=== PATIENT | female | born 1970 | race Caucasian/White ===

== ENCOUNTER 2023-01-26 17:03 | Outpatient (OUT) | payer BC, SELFPAY ==
--- NOTE | 2023-01-26 17:14 | US_ITS ---
The [address] [address] Patient Name: PATEL CUNHA MRN: [id number] date: 1970 Sex: F Assigned Patient Location: Current Patient Location: Accession/Order Number: [id number] Exam Date: 01/26/2023 17:15 Report Date: 01/27/2023 06:33 At the request of: EN BANKS Procedure: US pelvis w/ transvaginal EXAMINATION: US pelvis w/ transvaginal HISTORY: RIGHT LOWER QUADRANT PAIN R10.31 COMPARISON: No relevant comparison available. TECHNIQUE: Transabdominal and/or transvaginal sonographic examination was performed as indicated by examination type. FINDINGS: UTERUS: Hysterectomy. RIGHT OVARY: Not seen. LEFT OVARY: Normal size and appearance. Duplex Doppler demonstrates normal waveform and flow; resistive index 0.6. Ovary size: 1.3 x 1.4 x 1.4 cm CUL-DE-SAC: Unremarkable. No significant free fluid. BLADDER: Unremarkable. OTHER: None. US/US pelvis w/ transvaginal IMPRESSION: 1. Right ovary was not seen, and limited evaluation of the right lower quadrant due to shadowing artifact from large amount of bowel within right lower quadrant. Electronically authenticated by: BERNIE WARNER Date: 01/27/2023 06:33
== END 2023-01-26 17:04 | disposition home or self-care (01) ==
PROVIDERS: PCP Family Medicine; Visit Provider Nurse Practitioner Family
DX: R10.31 Right lower quadrant pain (principal)
CPT/HCPCS: 76830; 76856

== ENCOUNTER 2023-03-26 09:28 | Outpatient (OUT) | payer BC, SELFPAY ==
--- NOTE | 2023-03-26 09:54 | XR_ITS ---
The [address] [address] Patient Name: PATEL CUNHA MRN: [id number] date: 1970 Sex: F Assigned Patient Location: LAB Current Patient Location: LAB Accession/Order Number: [id number] Exam Date: 03/26/2023 10:00 Report Date: 03/26/2023 10:24 At the request of: DORI CONRAD Procedure: XR knee RT 3V EXAM: Right knee HISTORY: . Right Knee Pain M25.561 . COMPARISON: None. TECHNIQUE: 3 views FINDINGS: Right knee arthroplasty is noted. No loosening or fracture is noted. There is slight fullness in the suprapatellar region suggesting a small suprapatellar effusion. XR/XR knee RT 3V IMPRESSION: 1 right knee arthroplasty noted with no acute bony abnormality. 2. Questionable small suprapatellar effusion. Electronically authenticated by: MARIELA BROWN Date: 03/26/2023 10:24
[2023-03-26 10:41] LABS: Basophils Absolute Auto 0.1 10^3/uL (0.0-0.1); Basophils Percent Auto 0.7 % (0.2-2.0); Eosinophils Absolute Auto 0.2 10^3/uL (0.0-0.7); Hematocrit 40.2 % (36.0-48.0); Hemoglobin 13.5 g/dL (12.0-16.0); Immature Granulocytes Abs Auto 0.08 10^3/uL (0.00-0.03); Immature Granulocytes Pct Auto 1.1 % (0.0-0.5); Lymphocytes Absolute Auto 2.2 10^3/uL (1.2-3.8); Lymphocytes Percent Auto 30.3 % (20.5-60.0); Mean Corpuscular HGB Conc 33.6 g/dL (29.9-35.2); Mean Corpuscular Hemoglobin 28.4 pg (26.7-34.0); Mean Corpuscular Volume 84.5 fL (81.0-99.0); Mean Platelet Volume 10.2 fL (9.5-13.5); Monocytes Absolute Auto 0.6 10^3/uL (0.3-0.8); Monocytes Percent Auto 8.6 % (1.7-12.0); Neutrophils Absolute Auto 4.1 10^3/uL (1.4-6.5); Neutrophils Percent Auto 56.3 % (43.0-75.0); Platelet Count 279 10^3/uL (150-450); Red Blood Count 4.76 10^6/uL (4.20-5.40); Red Cell Distribution Width 12.8 % (11.0-15.0); White Blood Count 7.4 10^3/uL (4.0-11.0)
[2023-03-26 11:01] LABS: C Reactive Protein <0.2 mg/dL (<=1.0)
[2023-03-26 11:26] LABS: Erythrocyte Sedimentation Rate 25 mm/hr (<=30)
== END 2023-03-26 09:29 | disposition home or self-care (01) ==
LOC: LAB 09:31
PROVIDERS: PCP Family Medicine; Visit Provider Family Medicine
DX: M25.561 Pain in right knee (principal)
CPT/HCPCS: 36415; 73562; 85025; 85652; 86140

== ENCOUNTER 2023-04-01 13:23 | Day surgery (SDC) | payer BC, SELFPAY ==
--- NOTE | 2023-04-01 13:31 | FL_ITS ---
The [address] [address] Patient Name: PATEL CUNHA MRN: [id number] date: 1970 Sex: F Assigned Patient Location: [place] Current Patient Location: Accession/Order Number: [id number] Exam Date: 04/01/2023 13:40 Report Date: 04/01/2023 15:34 At the request of: DORI CONRAD Procedure: FL guided needle placement EXAMINATION: FL knee inj RT, FL guided needle placement HISTORY: Abnormal Knee Xray, Right knee effusion COMPARISON: No relevant comparison available. TECHNIQUE: The right knee joint space was accessed for removal of fluid. FINDINGS: JOINT: Right knee. NEEDLE: 20 gauge, 3.5 spinal needle. MEDICATION: 2 mL buffered 1% lidocaine for subcutaneous anesthesia TECHNIQUE: Anterior approach over the lateral femoral condyle was used to gain access to the knee joint capsule. 5 mL of minimally opaque but slightly reddish tinted fluid was removed. Several drops of fluid was placed on Q TIPS and placed in container for culture. CLINICAL: No postprocedure complications. COMPLICATIONS: None. OTHER: Negative. FL/FL guided needle placement IMPRESSION: 1. Successful removal of 5 mL of fluid from right knee joint to relieve pressure and for culture. 2. Pathology results are pending. Electronically authenticated by: BERNIE WARNER Date: 04/01/2023 15:34
--- NOTE | 2023-04-01 13:31 | FL_ITS ---
The [address] [address] Patient Name: PATEL CUHNA MRN: [id number] date: 1970 Sex: F Assigned Patient Location: [place] Current Patient Location: Accession/Order Number: [id number] Exam Date: 04/01/2023 13:40 Report Date: 04/01/2023 15:34 At the request of: DORI CONRAD Procedure: FL knee inj RT EXAMINATION: FL knee inj RT, FL guided needle placement HISTORY: Abnormal Knee Xray, Right knee effusion COMPARISON: No relevant comparison available. TECHNIQUE: The right knee joint space was accessed for removal of fluid. FINDINGS: JOINT: Right knee. NEEDLE: 20 gauge, 3.5 spinal needle. MEDICATION: 2 mL buffered 1% lidocaine for subcutaneous anesthesia TECHNIQUE: Anterior approach over the lateral femoral condyle was used to gain access to the knee joint capsule. 5 mL of minimally opaque but slightly reddish tinted fluid was removed. Several drops of fluid was placed on Q TIPS and placed in container for culture. CLINICAL: No postprocedure complications. COMPLICATIONS: None. OTHER: Negative. FL/FL knee inj RT IMPRESSION: 1. Successful removal of 5 mL of fluid from right knee joint to relieve pressure and for culture. 2. Pathology results are pending. Electronically authenticated by: BERNIE WARNER Date: 04/01/2023 15:34
[2023-04-01] MEDS: LIDOCAINE HCL 10 ML, SODIUM BICARBONATE 1 MEQ INJ (14:15)
== END 2023-04-01 14:30 | disposition home or self-care (01) ==
LOC: FL 13:23
PROVIDERS: Radiology Diagnostic Radiology; PCP Family Medicine; Visit Provider Family Medicine
DX: M25.461 Effusion, right knee (principal)
CPT/HCPCS: 20610; 77002; 87070; Q9967

== ENCOUNTER 2023-04-06 12:45 | Outpatient (OUT) | payer BC, SELFPAY | END 2023-04-06 12:46 | disposition home or self-care (01) | LOC: PST 12:45 | PROVIDERS: PCP Family Medicine; Visit Provider Surgery | DX: Z01.818 Encounter for other preprocedural examination (principal); Z86.010 Personal history of colon polyps ==

== ENCOUNTER 2023-04-14 06:27 | Day surgery (SDC) | payer BC, SELFPAY ==
--- NOTE | 2023-04-14 | OP_ITS ---
OPERATION DATE: ??04/14/2023 PREOPERATIVE DIAGNOSIS:? Personal history of colon polyps. POSTOPERATIVE DIAGNOSIS:? Ascending colon polyps x2 and sigmoid polyp x1. PROCEDURE:? Colonoscopy to cecum with cold snare polypectomy x2 and hot snare polypectomy x1. SURGEON:? Tyler Arnold M.D. ] ANESTHESIA:? Monitored anesthesia care. ESTIMATED BLOOD LOSS:? Less than 1 mL. INDICATIONS AND CONSENT:? 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 She now presents for surveillance colonoscopy. ?Indications, risks, benefits, alternatives of proceeding with colonoscopy were explained extensively to the patient, including the risks of bleeding, colon perforation or anesthetic complications.? All of her questions were answered.? Informed consent was obtained. PROCEDURE:? Patient brought to the operating room, placed in the left lateral decubitus position.? Monitored anesthesia care was provided.? Rectal exam was performed which showed no masses or blood.? The scope was inserted into the anal canal.? Under direct visualization was advanced to the cecum where cecal markings were clearly identified.? There was noted to be a good prep.? Upon withdrawal of the scope, mucosal surfaces were carefully examined.? Within the ascending colon, there was noted to be a 3 mm sessile polyp that was removed with cold biopsy forceps with good hemostasis.? Just distal to that, also in the ascending, was noted to be an elongated polyp that was cylindrical.? This was removed with cold snare with good hemostasis.? Within the sigmoid, there was noted to be previous tattooing for the tubulovillous adenoma.? There were no recurrent polyps at this site, but just distal to the area of tattooing was a recurrent 5 mm erythematous, sessile polyp that was removed with hot snare with good hemostasis.? There was no significant diverticulosis.? The scope was retroflexed in the anal canal.? There was no significant hemorrhoidal disease.? Scope was then withdrawn.? Patient tolerated procedure well, was sent to recovery room in good condition. Follow up colonoscopy will likely be in three years, but will depend on the pathology results. CC:? Yesika Urbano
[2023-04-14 06:42] VITALS: BP 157/9; PULSE 103; RESP 20; TEMP 36.3; O2SAT 95; BMI 39.4
[2023-04-14] MEDS: LACTATED RINGER'S SOLUTION 1,000 ML 50 ML IV (06:55)
[2023-04-14 07:54] VITALS: BP 143/81; PULSE 88; RESP 20; O2SAT 96
[2023-04-14 08:05] VITALS: BP 144/89; PULSE 87; RESP 16; O2SAT 98
[2023-04-14 08:18] VITALS: BP 155/84; PULSE 87; RESP 16; O2SAT 99
== END 2023-04-14 08:20 | disposition home or self-care (01) ==
PROVIDERS: PCP Family Medicine; Visit Provider Surgery
PROC: (CPT 45380; principal; 2023-04-14 07:30)
DX: D12.5 Benign neoplasm of sigmoid colon (principal); Z86.010 Personal history of colon polyps; K21.9 Gastro-esophageal reflux disease without esophagitis; I10 Essential (primary) hypertension; G47.33 Obstructive sleep apnea (adult) (pediatric); E66.01 Morbid (severe) obesity due to excess calories; F41.8 Other specified anxiety disorders; Z68.39 Body mass index [BMI] 39.0-39.9, adult; Z90.710 Acquired absence of both cervix and uterus
CPT/HCPCS: 45380; 45385; 88305; J2704

== ENCOUNTER 2024-09-29 08:16 | Outpatient (OUT) | payer BC, SELFPAY ==
--- NOTE | 2024-09-29 | XR_ITS ---
The [address] [address] Patient Name: PATEL CUNHA MRN: [id number] date: 1970 Sex: F Assigned Patient Location: [place] Current Patient Location: [place] Accession/Order Number: [id number] Exam Date: 09/29/2024 09:07 Report Date: 09/29/2024 09:16 At the request of: DORI CONRAD MD Procedure: XR hip LT 2V w/ pelvis CLINICAL DATA: Bilateral knee pain and pain at the left hip following fall. BILATERAL KNEES - 3 views each COMPARISON: Right knee 03/26/2023 and bilateral 03/06/2022 AP, lateral and internal oblique views were obtained on both sides. There our bilateral knee replacements. The hardware appears intact and unchanged from the comparison. There is no acute fracture or dislocation. There is a trace amount joint fluid. No focal soft tissue swelling seen. XR/XR hip LT 2V w/ pelvis IMPRESSION: SATISFACTORY APPEARANCE OF KNEE REPLACEMENTS. NO ACUTE BONY FINDINGS. LEFT HIP WITH AP PELVIS - 3 views COMPARISON: None available AP view of the pelvis as well as AP and frog-lateral views of the left hip were obtained. No fracture or dislocation is identified. The hip joint spaces are maintained. There is no significant hypertrophy. There are enthesophytes at the iliac crests and minimal at the greater trochanters. There is minor sclerosis at the SI joints and pubic symphysis. There is also minimal degenerative change at the lower imaged lumbar spine. No soft tissue abnormalities are present. Tubal ligation clips are noted. IMPRESSION: NO ACUTE BONY INJURY. Impression dictated by: Cassie Shah M.D.09/29/2024 9:16 AM Dictation Location: [place] [address] Electronically authenticated by: [id number] Y Date: 09/29/2024 09:16
--- NOTE | 2024-09-29 | NM_ITS ---
Patient Name: PATEL CUNHA MR#: [id number] : 1970 Exam Date: 09/29/2024 Ordering Doctor: DR Filemon Bunch . RADIOLOGY REPORT PROCEDURE: NM AKI PERF SPECT REST STR COMPARISON: None. INDICATIONS: CHEST PAIN TECHNIQUE: Exam Description: Stress/Rest one day protocol gated SPECT Rest Imagin.8 mCi Tc-99m Cardiolite IV on 09/29/2024 Stress Imaging 30.6 mCi Tc-99m Cardiolite IV on 09/29/2024 Exercise Protocol: Jose Heart Rate (bpm): Rest: 78 Max: 146 PMHR: 88 Blood Pressure: Rest: 156/81 Max: 192/88 Exercise Time: Minutes: 7 Seconds: 32 Stage Reached: Stage: 3 Mets 10.10 Symptoms: Rest and peak stress ECG findings were pending and the exercise portion of the study was pending per attending physician [facility] . For more details, please see separate cardiac stress test report. FINDINGS: QUALITY OF STUDY: Good PERFUSION DEFECT: None WALL MOTION: Normal wall motion LV SIZE: 71 mL. TID / TCD: 0.8 LVEF: Calculated EF 72%. SUMMARY: Myocardial perfusion imaging study is normal CONCLUSION: 1. Myocardial perfusion is normal with soft tissue attenuation 2. Global left ventricular systolic function is normal 3. No evidence of transient ischemic dilatation Dictated by: Diana Forrest M.D. on 10/03/2024 at 12:37 Approved by: Diana Forrest M.D. on 10/03/2024 at 12:41
--- NOTE | 2024-09-29 | XR_ITS ---
The [address] [address] Patient Name: PATEL CUNHA MRN: [id number] date: 1970 Sex: F Assigned Patient Location: [place] Current Patient Location: [place] Accession/Order Number: [id number] Exam Date: 09/29/2024 09:07 Report Date: 09/29/2024 09:16 At the request of: DORI CONRAD MD Procedure: XR hip LT 2V w/ pelvis CLINICAL DATA: Bilateral knee pain and pain at the left hip following fall. BILATERAL KNEES - 3 views each COMPARISON: Right knee 03/26/2023 and bilateral 03/06/2022 AP, lateral and internal oblique views were obtained on both sides. There our bilateral knee replacements. The hardware appears intact and unchanged from the comparison. There is no acute fracture or dislocation. There is a trace amount joint fluid. No focal soft tissue swelling seen. XR/XR knee ANA CRISTINA 3V IMPRESSION: SATISFACTORY APPEARANCE OF KNEE REPLACEMENTS. NO ACUTE BONY FINDINGS. LEFT HIP WITH AP PELVIS - 3 views COMPARISON: None available AP view of the pelvis as well as AP and frog-lateral views of the left hip were obtained. No fracture or dislocation is identified. The hip joint spaces are maintained. There is no significant hypertrophy. There are enthesophytes at the iliac crests and minimal at the greater trochanters. There is minor sclerosis at the SI joints and pubic symphysis. There is also minimal degenerative change at the lower imaged lumbar spine. No soft tissue abnormalities are present. Tubal ligation clips are noted. IMPRESSION: NO ACUTE BONY INJURY. Impression dictated by: Cassie Shah M.D.09/29/2024 9:16 AM Dictation Location: [place] [address] Electronically authenticated by: [id number] Y Date: 09/29/2024 09:16
--- NOTE | 2024-10-02 16:55 | P.STRESS_ITS ---
Stress Test Stress Test Allergies Allergy/AdvReac Type Severity Reaction Status Date / Time NSAIDS (Non-Steroidal Allergy rash Verified 04/01/23 14:43 Anti-Inflamma Sulfa (Sulfonamide Allergy rash Verified 04/01/23 14:43 Antibiotics) Requesting physician: Filemon Bunch Procedure: This was a treadmill exercise stress test with myocardial perfusion imaging performed at the [facility] on 09/29/2024. The patient was attached to electrocardiographic monitoring. Intravenous line was secured. The patient exercised on the treadmill according to the Jose protocol for 7 minutes and 32 seconds and reached stage 3 of the Jose protocol and achieved 10.10 minutes. Cardiolite was injected at peak exercise. The stress test was stopped due to target heart rate being achieved. Resting heart rate was 78 bpm and peak heart rate was 146 bpm representing 88% of max predicted heart rate. Resting blood pressure was 156/81 and peak blood pressure was 192/88. General Information: Reason for Stress Test: dyspnea Cardiac History and Risk Factors: hypertension, diabetes. Resting 12 - Lead Electrocardiogram: Normal sinus rhythm, normal ECG. Heart rate 78 bpm. Stress Test: Protocol: Standard Jose protocol. Exercise Capacity: Good. Blood Pressure Response: Resting hypertension, exaggerated blood pressure response. Rhythm: Sinus rhythm with no arrhythmias. ST - Response: [address] segment depression in V4, V5 and V6. Patient Response: No chest pain, shortness of breath noted. Interpretation: 1. Positive treadmill exercise stress test for exercise-induced ST segment depressions. 2. Sarmiento treadmill score of +2.5 is associated with intermediate risk for long- term cardiac events. 3. Myocardial perfusion imaging will reported separately.
== END 2024-09-29 08:17 | disposition home or self-care (01) ==
LOC: NM 08:16
PROVIDERS: PCP Family Medicine; Visit Provider Family Medicine
DX: R07.9 Chest pain, unspecified (principal); M79.606 Pain in leg, unspecified; Z96.653 Presence of artificial knee joint, bilateral
CPT/HCPCS: 73502; 73562; 78452; 93017; A9500

== ENCOUNTER 2024-10-24 09:00 | Outpatient (OUT) | payer BC, SELFPAY ==
--- NOTE | 2024-10-24 09:00 | CA_ITS ---
Patient Name: PATEL CUNHA MR#: [id number] : 1970 Exam Date: 10/24/2024 Ordering Doctor: DR ESPERANZA GARCIA M.D. ECHOCARDIOGRAM REPORT PROCEDURE: CA ECHO DOPPLER COMPLETE INDICATIONS: Shortness of breath, hypertension, diabetes COMPARISON: None. DESCRIPTION: COMPLETE ECHOCARDIOGRAM Real-time transthoracic echocardiography with 2D, M-mode, spectral and color flow Doppler performed. QUALITY: Technical quality was good. LEFT VENTRICLE: Normal chamber size. Borderline left ventricular hypertrophy. Normal systolic function. LV EF: Normal left ventricular ejection fraction, (55-60%). DIASTOLIC: Normal diastolic function. ATRIAL SEPTUM: Visually appears intact. LEFT ATRIUM: Normal chamber size. RIGHT ATRIUM: Normal chamber size. RIGHT VENTRICLE: Normal chamber size. Normal right ventricular systolic function. TRICUSPID VALVE: Normal mobility and thickness. No stenosis with trivial regurgitation. No evidence of pulmonary hypertension. RVSP 34 mmHg MITRAL VALVE: Normal mobility and thickness. No evidence of mitral valve stenosis. There is no mitral annular calcification. Trivial mitral regurgitation. AORTIC VALVE: Normal trileaflet appearance. No visible sclerosis. Normal leaflet mobility. No evidence of aortic valve stenosis. No aortic regurgitation. AORTIC ROOT: Normal diameter and appearance, measuring 2.7 cm. PULMONIC VALVE: Not well visualized. No stenosis. No regurgitation. PERICARDIUM: No evidence of pericardial effusion. IVC: Collapses with inspirations. IVC is normal in size. PLEURA: CONCLUSION: 1. Normal left ventricular size and systolic function. Estimated LVEF is 55 to 60%. 2. Normal right ventricular size and systolic function. 3. Normal diastolic function. 4. No significant valvular dysfunction. 5. Normal right-sided pressures. Adult Echocardiography Procedure Report Left Ventricle LVEDD (3.7 - 5.6 cm): 3.84 cm LVESD (2.2 - 4.0 cm): 2.94 cm LVIVS thickness (0.6 - 1.2 cm): 1.00 cm LVPW thickness (0.5 - 1.0 cm): 1.14 cm e': 0.11 m/s E - e': 9.48 LVOT Max Gradient: 3.58 mm[Hg] LVOT Area (cm2): 0.95 m/s Peak Velocity (LVOT): 0.95 m/s Mean Velocity (LVOT): 0.61 m/s LVOT Diameter 2.03 cm Left Atrium LA Volume Index (2D A2C): 23.14 ml/m2 Left Atrium Systolic Dimension: 4.22 cm Mitral Valve MV E to A Ratio: 1.44 Mitral Valve A-Wave Peak Velocity: 0.71 m/s Mitral Valve E-Wave Peak Velocity: 1.02 m/s Right Ventricle Aorta AO Root Diam: 2.67 cm Aortic Valve AoV Area (Peak Madhu): 2.40 cm2, 2.40 cm2 AoV Area (VTI): 2.19 cm2, 2.19 cm2 Peak Velocity(Antegrade Flow): 1.27 m/s Peak Gradient(Antegrade Flow): 6.46 mm[Hg] Mean Velocity(Antegrade Flow): 0.87 m/s Mean Gradient(Antegrade Flow): 3.48 mm[Hg] Velocity Time Integral: 28.15 cm Tricuspid Valve Peak Velocity (Regurgitant Flow): 2.78 m/s Pulmonic Valve Mean Gradient: 1.84 mm[Hg] Mean Velocity: 0.62 m/s Peak Velocity: 1.00 m/s, 0.94 m/s Peak Gradient: 3.53 mm[Hg], 3.98 mm[Hg] Right Atrium Right Atrium Systolic Pressure: 46.66 ml, 46.66 ml Dictated by: Kendall Cheema M.D. on 10/24/2024 at 19:37 Approved by: Kendall Cheema M.D. on 10/24/2024 at 19:40
--- OUTSIDE RECORDS SUMMARY | 2024-10-24 09:10 | XMS_ITS | CCD ---
Author Organization [facility] Care Team Providers Care Processor Grain Name Role Phone ALEXAY ., DR MEADOWS Admitting Unavailable HOY ., DR MEADOWS Attending Unavailable HOY ., DR MEADOWS Primary Care Unavailable HOY ., DR MEADOWS Admitting Unavailable HOY ., DR MEADOWS Attending Unavailable HOY ., DR MEADOWS Primary Care Unavailable HOY ., DR MEADOWS Primary Care Unavailable REINECK, DR CASSIDY Bowers Admitting Unavailabl e REINECK, DR CASSIDY Bowers Attending Unavailabl e REINECK, DR CASSIDY Bowers Consulting Unavailabl e ROBELTECHIDI OMID Consulting Unavailable HOY ., DR MEADOWS Admitting Unavailable HOY ., DR MEADOWS Attending Unavailable HOY ., DR MEADOWS Primary Care Unavailable HOY ., DR MEADOWS Admitting Unavailable HOY ., DR MEDAOWS Attending Unavailable HOY ., DR MEADOWS Primary Care Unavailable HOY ., DR MEADOWS Consulting Unavailable MARIELA DELCID Consulting Unavailable HOY ., DR MEADOWS Admitting Unavailable HOY ., DR MEADOWS Attending Unavailable HOY ., DR MEADOWS Primary Care Unavailable HOY ., DR MEADOWS Consulting Unavailable REDMOND, DR MARIELA Pinzon Consulting Unavailable HOY ., DR MEADOWS Admitting Unavailable HOY ., DR MEADOWS Attending Unavailable HOY ., DR MEADOWS Primary Care Unavailable HOY ., DR MEADOWS Consulting Unavailable Kulwinder Nickerson Consulting Unavailable Dori Bunch Primary Care Physician [phone] Tyler ELLIS Attending Unavailable Tyler ELLIS Attending Unavailable EN BANKS Referring Unavailable Tyler ELLIS Attending Unavailable ANDRE HAWTHORNE Referring Unavailable DORI BUNCH Primary Care Unavailable DIANA FORREST Attending Unavailable Allergies Allergy Classification Reported Allergen(s) Allergy Type Date of Onset Reaction(s) Facility (2 sources) NSAIDs; Translations: [NSAIDS (NON-STEROIDAL ANTI-INFLAMMATOR Y DRUG)] Drug allergy (disorder) 6 [facility] (1 source) Sulfonamides (Antibiotic) Drug allergy (disorder) 6 [facility] (2 sources) Non-steroidal anti-inflammator y agent; Translations: [NSAIDs] Drug allergy Hives [facility] (2 sources) Sulfamethoxazole ; Translations: [sulfamethoxazol e] Drug Allergy Anaphylaxis (disorder) [facility] (1 source) Sulfonamides (Antibiotic); Translations: [SULFA (SULFONAMIDE ANTIBIOTICS)] Propensity to adverse reactions to drug (disorder) 6 [facility] Repository Medications Current Medications Medication Drug Class(es) Dates Sig (Normalized) Sig (Original) lisinopril 20 mg oral tablet (1 source) Angiotensin Converting Enzyme Inhibitor Start: 11-20-2020 take 1 tablet by mouth once daily lisinopril 20 mg Tab 20 mg = 1 tab(s), Oral, Daily, # 90 tab(s), Refills(s) 0 Start Date: 11/20/20 Status: Ordered sertraline 50 mg oral tablet (1 source) Serotonin Reuptake Inhibitor Start: 03-08-2023 take 1 tablet by mouth once daily Zoloft 50 mg Tab 50 mg = 1 tab(s), Oral, Daily, Refills(s) 0 Start Date: 03/08/23 Status: Ordered Problems Active Problems Problem Classification Problem Date Documented Date Episodic/Chronic Abdominal pain (1 source) Right lower quadrant pain 03-08-2023 Episodic Allergic reactions (1 source) Eczema 03-08-2023 Episodic Anxiety disorders (1 source) Mixed anxiety and depressive disorder 03-08-2023 Chronic Diabetes mellitus without complication (2 sources) Type 2 diabetes mellitus without complications; Translations: [Type 2 diabetes mellitus without complications] Onset: 10-09-2024 Chronic Esophageal disorders (1 source) Gastroesophageal reflux disease 03-08-2023 Chronic Essential hypertension (1 source) Hypertensive disorder 07-24-2013 Chronic Joint disorders and dislocations; trauma-related (1 source) Tear of medial meniscus of knee 09-29-2013 Episodic Comment on above: LEFT Nonspecific chest pain (2 sources) Other chest pain; Translations: [Other chest pain] Onset: 10-09-2024 Episodic Osteoarthritis (2 sources) Unilateral primary osteoarthritis, right knee; Translations: [Osteoarthritis of knee] Onset: 03-10-2022 07-24-2013 Chronic Comment on above: LEFT Other aftercare (2 sources) Aftercare following joint replacement surgery; Translations: [Aftercare following joint replacement surgery] Onset: 05-17-2023 Chronic Other and unspecified benign neoplasm (2 sources) History of polyp of colon; Translations: [Personal history of colonic polyps] Onset: 03-12-2023 Episodic Other and unspecified benign neoplasm (2 sources) Adenomatous polyp of colon 12-12-2020 Episodic Other connective tissue disease (6 sources) Presence of right artificial knee joint; Translations: [PRESENCE RT ARTIFICIAL KNEE JOINT] Onset: 07-19-2022 Chronic Other connective tissue disease (1 source) Presence of left artificial knee joint; Translations: [PRESENCE LEFT ARTIFICIAL KNEE JOINT] Onset: 03-10-2022 Chronic Other female genital disorders (1 source) History of gynecological disorder 03-08-2023 Episodic Other non-traumatic joint disorders (2 sources) Effusion, right knee; Translations: [Effusion, right knee] Onset: 05-17-2023 Episodic Other nutritional; endocrine; and metabolic disorders (1 source) Body mass index 30+ - obesity 11-22-2020 Chronic Other nutritional; endocrine; and metabolic disorders (1 source) Morbid obesity 03-12-2023 Chronic Other screening for suspected conditions (not mental disorders or infectious disease) (2 sources) Abnormal result of other cardiovascular function study; Translations: [Abnormal result of other cardiovascular function study] Onset: 10-09-2024 Episodic Residual codes; unclassified (1 source) Obstructive sleep apnea syndrome 03-08-2023 Chronic Unclassified (1 source) Patient encounter status 11-22-2020 Past or Other Problems Problem Classification Problem Date Documented Da te Episodic/Chronic Other non-traumatic joint disorders (5 sources) Pain in right knee; Translations: [PAIN IN RIGHT KNEE] Onset: 02-26-2022 Episodic Other non-traumatic joint disorders (5 sources) Pain in left knee; Translations: [PAIN IN LEFT KNEE] Onset: 02-24-2022 Episodic Other non-traumatic joint disorders (1 source) Effusion, left knee; Translations: [EFFUSION LEFT KNEE] Onset: 02-26-2022 Episodic Results Test Name Value Interpretation Reference Range Facility Letter (Out)on 10-13-2024 Letter (Out) [id number] Patel Cunha 1970 F Date Provider Department Center 10/13/2024 None-None [facility] C Family History Problem Relation Age of Onset Stroke Father Coronary artery disease Father Diabetes Father Other Father Hyperlipidemia Brother Coronary artery disease Brother Family Status - Relation Status Age at Father Brother Normal [facility] Letter (Out)on 10-11-2024 Letter (Out) [id number] Patel Cunha 1970 F Date Provider Department Center 10/11/2024 None-None [facility] C Family History Problem Relation Age of Onset Stroke Father Coronary artery disease Father Diabetes Father Other Father Hyperlipidemia Brother Coronary artery disease Brother Family Status - Relation Status Age at Father Brother Normal [facility] Office Visiton 10-09-2024 Follow-up visit [id number] Patel Cunha 1970 Provider Department Center 10/09/2024 271-DIANA FORREST [facility] Family History Problem Relation Age of Onset Stroke Father Coronary artery disease Father Diabetes Father Other Father Hyperlipidemia Brother Coronary artery disease Brother Family Status - Relation Status Age at Father Brother Level of Service:37285 [place] OFFICE/OUTPATIENT [facility] 60 MINUTES Normal [facility] Orders Onlyon 10-09-2024 Orders Only [id number] Patel Cunha 1970 Provider Department Center 10/09/2024 [facility] JON [facility] Family History Problem Relation Age of Onset Stroke Father Coronary artery disease Father Diabetes Father Other Father Hyperlipidemia Brother Coronary artery disease Brother Family Status - Relation Status Age at Father Brother Normal [facility] Cult,Fluidon 05-23-2023 Cult,Fluid Specimen Description .KNEE RIGHT .ASPIRATE Direct Exam MANY NEUTROPHILS NO ORGANISMS SEEN Gram stain made from cytocentrifuged specimen. Organisms and cells will be concentrated. Culture NO GROWTH 6 DAYS Report Status FINAL 05/23/2023 Abnormal [facility] Comment on above: Performed By: #### F U #### [facility] [employer] [address] [place] [address] Insurance Analyst: Abdullahi Forman MD Crystals, Fluidson 3 Crystals,Fluid Negative Normal NEG [facility] in Hospital Comment on above: Result Comment: NO C RYSTALS SEEN Performed By: #### F LCRYS #### [facility] [address] [place] [address] Insurance Analyst: Abdullahi Forman MD [address] [place], [place] [id number] Insurance Analyst: Mariela Burks MD #### FLDCT #### [address] [place] [address] Insurance Analyst: Mariela Burks MD Pathologist Review: ELECTRONICALLY SIGNED. MISTY CHAIREZ M.D. [facility] Comment on above: Performed By: #### F LCRYS #### [facility] [address] [place] [address] Insurance Analyst: Abdullahi Forman MD [address] [place] [address] Insurance Analyst: Mariela Burks MD #### FLDCT #### [address] [place] [address] Insurance Analyst: Mariela Burks MD C-Reactive Proteinon 023 CRP [Mass/Vol] 10.8 mg/L High 0.0-5.0 [facility] in Hospital Comment on above: Performed By: #### S ED, CRP #### [address] [place] [address] Insurance Analyst: Mariela Burks MD Fluid Cell Count and Diffon 05-17-2023 Appearance (U) SLIGHTLY CLOUDY Normal [facility] Comment on above: Performed By: #### F LCRYS #### [facility] [address] [place] [address] Insurance Analyst: Abdullahi Forman MD [address] [place] [address] Insurance Analyst: Mariela Burks MD #### FLDCT #### [facility] [address] [place] [address] [place] [address] Insurance Analyst: Mariela Burks MD Color (U) Yellow [facility] Comment on above: Performed By: #### F LCRYS #### [facility] [address] [place] [address] Insurance Analyst: Abdullahi Forman MD [address] [place] [address] Insurance Analyst: Mariela Burks MD #### FLDCT #### [address] [place] [address] Insurance Analyst: Mariela Burks MD RBC (Bld) [#/Vol] 0.003 10*6/uL [facility] Comment on above: Performed By: #### F LCRYS #### [facility] [address] [place] [address] Insurance Analyst: Abdullahi Forman MD [facility] [address] [place] [address] [place] [address] Insurance Analyst: Mariela Burks MD #### FLDCT #### [address] [place] [address] Insurance Analyst: Mariela Burks MD WBC (Bld) [#/Vol] 1.327 10*3/uL [facility] Comment on above: Performed By: #### F LCRYS #### [facility] [address] [place] [address] Insurance Analyst: Abdullahi Forman MD [facility] [address] [place] [address] [place] [address] Insurance Analyst: Mariela Burks MD #### FLDCT #### [facility] [address] [place] [address] [place] [address] Insurance Analyst: Mariela Burks MD [address] Comment on above: Performed By: #### F LCRYS #### [facility] [address] [place] [address] Insurance Analyst: Abdullahi Forman MD [facility] [address] [place] [address] Dr[place], [place] [id number] Insurance Analyst: Mariela Burks MD #### FLDCT #### [facility] [address] [place] [address] [place], [place] [phone] Insurance Analyst: Mariela Burks MD [address] Comment on above: Performed By: #### F LCRYS #### [facility] [address] [place] [id number] Insurance Analyst: Abdullahi Forman MD [facility] [address] [place] [address] [place], [place] [phone] Insurance Analyst: Mariela Burks MD #### FLDCT #### [facility] [address] [place] [address] [place] [address] Insurance Analyst: Mariela Burks MD Lymphocytes/100 WBC (Bld) 18 % High [address] [place] [address] Comment on above: Performed By: #### F LCRYS #### [facility] [address] [place] [address] Insurance Analyst: Abdullahi Forman MD [facility] [address] [place] [address] [place] [address] Insurance Analyst: Mariela Burks MD #### FLDCT #### [facility] [address] [place] [address] [place], [place] [id number] Insurance Analyst: Mariela Burks MD [place]/Macrophage 16 % [address] Comment on above: Performed By: #### F LCRYS #### [facility] [address] [place] [address] Insurance Analyst: Abdullahi Forman MD [facility] [address] [place] [address] Insurance Analyst: Mariela Burks MD #### FLDCT #### [facility] [address] [place] [address] Insurance Analyst: Mariela Burks MD Neutrophils/100 WBC (Bld) 66 % High 0 [facility] Comment on above: Performed By: #### F LCRYS #### [facility] [address] [place] [address] Insurance Analyst: Abdullahi Forman MD [facility] [address] [place], [place] [phone] Insurance Analyst: Mariela Burks MD #### FLDCT #### [facility] [address] [place] [address] Insurance Analyst: Mariela Burks MD Other Cells Normal [address] [place] [address] Comment on above: Performed By: #### F LCRYS #### [facility] [address] [place] [address] Insurance Analyst: Abdullahi Forman MD [facility] [address] [place] [address] [place] [address] Insurance Analyst: Mariela Burks MD #### FLDCT #### [facility] [address] [place] [address] Insurance Analyst: Mariela Burks MD Type of Specimen .KNEE Normal [facility] Comment on above: Performed By: #### F LCRYS #### [facility] [address] [place] [address] Insurance Analyst: Abdullahi Forman MD [facility] [address] [place] [address] [place] [address] Insurance Analyst: Mariela Burks MD #### FLDCT #### [facility] [address] [place], [place] [phone] Insurance Analyst: Mariela Burks MD Result Comment: .JUSTIN E Sedimentation Rateon 1030-2 023 Sedimentation Rate 12 mm/Hr Normal 0-30 [facility] Comment on above: Performed By: #### S ED, CRP #### [facility] [address] [place] [address] Insurance Analyst: Mariela Burks MD Ambulatory Visit Summaryon 1 Ambulatory Visit Summary PATEL CUNHA :1970 MRN: Visit Date:04/27/2023 Ambulatory Visit Instructions Your Care Team Attending Physician - RHONDA DE LUNA, Tyler Rodriguez Primary Care Physician - Alivia DE LUNA, Dori This Is Your Medications List Contact prescribing physician if questions or concerns lisinopril (lisinopril 20 mg Tab) sertraline (Zoloft 50 mg Tab) Procedures Performed Colonoscopy (04/14/2023), Colonoscopy (02/26/2021), left knee arthroscopy with partial medial meniscectomy, chondroplasty lateral tibia, chondroplasty patellofemoral joint (08/07/2013), Arthroplasty of left knee, Arthroplasty of right knee, Arthroscopy of knee, Arthrotomy, Colonoscopy, Endometrial ablation, Exploratory laparotomy, Ovarian cystectomy, Tubal ligation, VH - Vaginal hysterectomy. Medications What How Much When Instructions Unchanged lisinopril (lisinopril 20 mg Tab) 1 Tablets By Mouth Every day Contact prescribing physician if questions or concerns Unchanged sertraline (Zoloft 50 mg Tab) 1 Tablets By Mouth Every day Contact prescribing physician if questions or concerns Allergies NSAIDs (Hives) sulfamethoxazole (Anaphylaxis) Problems Ongoing - Any problem that you are currently receiving treatment for. Anxiety and depression BMI 39.0-39.9,adult Eczema GERD (gastroesophageal reflux disease) High grade dysplasia in colonic adenoma History of ovarian cyst HTN - Hypertension Knee DJD Morbid obesity ROSENDO (obstructive sleep apnea) Personal history of colonic polyps Right lower quadrant pain Screening for malignant neoplasm of colon Tear of medial meniscus of knee Tubulovillous adenoma of colon Normal [facility] Ambulatory Visit Summary PATEL CUNHA :1970 Visit Date:04/27/2023 Ambulatory Visit Instructions Your Care Team Attending Physician - RHONDA DE LUNA, Tyler Rodriguez Primary Care Physician - Dori Bunch MD This Is Your Medications List lisinopril (lisinopril 20 mg Tab) sertraline (Zoloft 50 mg Tab) Procedures Performed Colonoscopy (04/14/2023), Colonoscopy (02/26/2021), left knee arthroscopy with partial medial meniscectomy, chondroplasty lateral tibia, chondroplasty patellofemoral joint (08/07/2013), Arthroplasty of left knee, Arthroplasty of right knee, Arthroscopy of knee, Arthrotomy, Colonoscopy, Endometrial ablation, Exploratory laparotomy, Ovarian cystectomy, Tubal ligation, VH - Vaginal hysterectomy. Medications What How Much When Instructions Unchanged lisinopril (lisinopril 20 mg Tab) 1 Tablets By Mouth Every day Unchanged sertraline (Zoloft 50 mg Tab) 1 Tablets By Mouth Every day Allergies NSAIDs (Hives) sulfamethoxazole (Anaphylaxis) Problems Ongoing - Any problem that you are currently receiving treatment for. Anxiety and depression BMI 39.0-39.9,adult Eczema GERD (gastroesophageal reflux disease) High grade dysplasia in colonic adenoma History of ovarian cyst HTN - Hypertension Knee DJD Morbid obesity ROSENDO (obstructive sleep apnea) Personal history of colonic polyps Right lower quadrant pain Screening for malignant neoplasm of colon Tear of medial meniscus of knee Tubulovillous adenoma of colon Normal [facility] General Surgery Office/Clini c Noteon 04-27-2023 General Surgery Office/Clinic Note Chief Complaint colonoscopy follow up HPI Staff 13 day post operative follow up post colonoscopy with ascending and sigmoid polypectomies. History of Present Illness s/p colonoscopy with polypectomies due to personal h/o colon polyps, one with high grade dysplasia; 2 tiny ascending polyps just lymph tissue on pathology; 5 mm sigmoid tubular adenoma removed; tattoo site from poly with high grade dysplasia well-healed, no recurrent polyps or nodularity. patient denies abd pain or blood in stools. Review of Systems ROS - Provider Constitutional: no fever, no sweats, no weight loss. Eyes: no glasses, no blurred vision, no visual loss. ENMT: no dentures, no hoarseness, no swallowing difficulties, no hearing loss, no ear infection(s), no nose bleeds. Cardiovascular: normal blood pressure, no chest pain, regular heartbeat, no heart murmur. Respiratory: no shortness of breath, no cough, no asthma, no wheezing. Gastrointestinal: no nausea, no vomiting, no diarrhea, no constipation, no blood in stool, no change in bowel habits, no abdominal pain, no hepatitis. Genitourinary: no kidney stones, no urine infection, no dysuria. Musculoskeletal: no pain, no weakness. Skin: no changing moles, no rash, no skin lumps. Neurologic: no seizures, no epilepsy, no headache. Psychiatric: no emotional or psychiatric problem. Heme/Lymph: no bleeding problems, no anemia, no blood clots, no transfusions. Allergy/Immunologic: no swollen lymph nodes/glands, no IV drug abuse. Other: Additional ROS info: Except as noted in the above Review of Systems and in the History of Present Illness, all other systems have been reviewed and are negative or noncontributory. Assessment/Plan 1. Benign neoplasm of sigmoid colon (D12.5: Benign neoplasm of sigmoid colon) plan surveillance colonoscopy in 3 years, call sooner if problems/questions. Follow-up No qualifying data available Problem List/Past Medical History Ongoing Anxiety and depression Benign neoplasm of sigmoid colon BMI 39.0-39.9,adult Eczema GERD (gastroesophageal reflux disease) High grade dysplasia in colonic adenoma History of ovarian cyst HTN - Hypertension Knee DJD Morbid obesity ROSENDO (obstructive sleep apnea) Personal history of colonic polyps Right lower quadrant pain Screening for malignant neoplasm of colon Tear of medial meniscus of knee Tubulovillous adenoma of colon Historical No qualifying data Procedure/Surgical History Colonoscopy (04/14/2023), Colonoscopy (02/26/2021), left knee arthroscopy with partial medial meniscectomy, chondroplasty lateral tibia, chondroplasty patellofemoral joint (08/07/2013), Arthroplasty of left knee, Arthroplasty of right knee, Arthroscopy of knee, Arthrotomy, Colonoscopy, Endometrial ablation, Exploratory laparotomy, Ovarian cystectomy, Tubal ligation, VH - Vaginal hysterectomy. Medications lisinopril 20 mg Tab, 20 mg= 1 tab(s), Oral, Daily Zoloft 50 mg Tab, 50 mg= 1 tab(s), Oral, Daily Allergies NSAIDs (Hives) sulfamethoxazole (Anaphylaxis) Social History Alcohol - Denies Alcohol Use, 07/24/2013 Substance Abuse - Denies Substance Abuse, 07/24/2013 Tobacco - Denies Tobacco Use, 07/24/2013 Never (less than 100 in lifetime) Tobacco Use:. Never Smokeless Tobacco Use:., 03/12/2023 Family History CAD - Coronary artery disease: Father. Cancer: Grandparent and Other Relationship. Diabetes mellitus type 2: Father. Heart disease: Father. Polyp colon: Mother. Stroke: Father. Immunizations Vaccine Date Status Comments SARS-CoV-2 (COVID-19) mRNA BNT-162b2 vax 07/04/2021 Recorded 2023-03-08: TPV50 SARS-CoV-2 (COVID-19) mRNA BNT-162b2 vax 2020 Recorded SARS-CoV-2 (COVID-19) mRNA BNT-162b2 vax 10/10/2020 Recorded Normal [facility] Comment on above: Result Comment: Elec tronically Signed By: RHONDA DE LUNA, Tyler Vincent\Date and Time Signed: 04/27/23 16:12 EDT Reminderson 04-27-2023 Reminders - From: Catherine Buckner LPN To: N - Clinical; Sent: 04/27/2023 16:04:10 EDT Show up: 03/14/2026 07:00:00 EDT Subject: colonoscopy recall Due Date/Time: 04/14/2026 07:00:00 EDT Reminder/Recall Patient due for colonoscopy 04/14/2026 due to history of tubular adenoma and dysplasia in 2020. Normal [facility] Pathology Noteon 04-23-2023 Pathology Note [id number] .00TIFF [facility] Outside Colonoscopyon 2022 Outside Colonoscopy [id number] .00CD:127 [facility] Insurance Correspondenceon 0 03-29-2023 Insurance Correspondence [id number] 1.00CD:127 [facility] Consent for Procedure/Surger yon 03-15-2023 Consent for Procedure/Surgery [id number] .00CD:[address] [facility] Ambulatory Visit Summaryon 0 03-12-2023 Ambulatory Visit Summary PATEL CUNHA :1970 Visit Date:03/12/2023 Ambulatory Visit Instructions Your Diagnosis Personal history of colonic polyps Your Care Team Attending Physician - RHONDA DE LUNA, Tyler Rodriguez Primary Care Physician - Alivia DE LUNA, Dori Referring Physician - EN BANKS CNP This Is Your Medications List Contact prescribing physician if questions or concerns lisinopril (lisinopril 20 mg Tab) sertraline (Zoloft 50 mg Tab) Procedures Performed Colonoscopy (02/26/2021), left knee arthroscopy with partial medial meniscectomy, chondroplasty lateral tibia, chondroplasty patellofemoral joint (08/07/2013), Arthroplasty of left knee, Arthroplasty of right knee, Arthroscopy of knee, Arthrotomy, Colonoscopy, Endometrial ablation, Exploratory laparotomy, Ovarian cystectomy, Tubal ligation, VH - Vaginal hysterectomy. Discharge Vitals Heart Rate (Peripheral) 72 Respiratory Rate 16 Blood Pressure 120/78 Height 160 cm Height 63 in Weight 101.4 kg Weight 223.08 lb BMI 39.61 Medications What How Much When Instructions Unchanged lisinopril (lisinopril 20 mg Tab) 1 Tablets By Mouth Every day Contact prescribing physician if questions or concerns Unchanged sertraline (Zoloft 50 mg Tab) 1 Tablets By Mouth Every day Contact prescribing physician if questions or concerns Allergies NSAIDs (Hives) sulfamethoxazole (Anaphylaxis) Problems Ongoing - Any problem that you are currently receiving treatment for. Anxiety and depression BMI 39.0-39.9,adult Eczema GERD (gastroesophageal reflux disease) High grade dysplasia in colonic adenoma History of ovarian cyst HTN - Hypertension Knee DJD Morbid obesity ROSENDO (obstructive sleep apnea) Personal history of colonic polyps Right lower quadrant pain Screening for malignant neoplasm of colon Tear of medial meniscus of knee Tubulovillous adenoma of colon Normal [facility] RAD - Ultrasound Reporton RAD - Ultrasound Report [id number]:[address] [facility] Physician Referralon 07-14-2 023 Physician Referral [id number]:[address] [facility] CBC AUTO DIFFon 11-01-2022 BASO # 0.1 103/ul Normal 0.0-0.1 [facility] Comment on above: Performed By: #### C BC #### [facility] [address] [place] [address] Dr. Lorenzo Mcpherson Basophils/100 WBC (Bld) 0.6 % Normal 0.2-2.0 [facility] Comment on above: Performed By: #### C BC #### [facility] [address] [place] [address] Dr. Lorenzo Mcpherson EO # 0.4 103/ul Normal 0.0-0.7 [facility] Comment on above: Performed By: #### C BC #### [facility] [address] [place] [address] Dr. Lorenzo Mcpherson Eosinophils/100 WBC (Bld) 5.3 % Normal 0.9-7.0 [facility] Comment on above: Performed By: #### C BC #### [facility] [address] [place] [address] Dr. Lorenzo Mcpherson Erythrocyte distribution width (RBC) [Ratio] 14.2 % Normal 11.0-15.0 [facility] Comment on above: Performed By: #### C BC #### [facility] [address] [place] [address] Dr. Lorenzo Mcpherson Hematocrit (Bld) [Volume fraction] 39.5 % Normal 36.0-48.0 [facility] Comment on above: Performed By: #### C BC #### [facility] [address] [place] [address] Dr. Lorenzo Mcpherson Hemoglobin (Bld) [Mass/Vol] 13.4 g/dL Normal 12.0-16.0 [facility] Comment on above: Performed By: #### C BC #### [facility] [address] [place] [address] Dr. Lorenzo Mcpherson IG # 0.04 10e3/ul Critically high 0.00-0.03 [facility] Comment on above: Performed By: #### C BC #### [facility] [address] [place] [address] Dr. Lorenzo Mcpherson IG % 0.5 % Normal 0.0-0.5 [facility] Comment on above: Performed By: #### C BC #### [facility] [address] [place] [address] Dr. Lorenzo Mcpherson LYMPH # 2.7 103/ul Normal 1.2-3.8 [facility] Comment on above: Performed By: #### C BC #### [facility] [address] [place] [address] Dr. Lorenzo Mcpherson Lymphocytes/100 WBC (Bld) 34.3 % Normal 20.5-60.0 [facility] Comment on above: Performed By: #### C BC #### [facility] [address] [place] [address] Dr. Lorenzo Mcpherson MANUAL DIFF REQ NO Normal [facility] Comment on above: Performed By: #### C BC #### [facility] [address] [place] [address] Dr. Lorenzo Mcpherson MCH (RBC) [Entitic mass] 28.2 pg Normal 26.7-34.0 [facility] Comment on above: Performed By: #### C BC #### [facility] [address] [place] [address] Dr. Lorenzo Mcpherson MCHC (RBC) [Mass/Vol] 33.9 g/dL Normal 29.9-35.2 [facility] Comment on above: Performed By: #### C BC #### [facility] [address] [place] [address] Dr. Lorenzo Mcpherson MCV (RBC) [Entitic vol] 83.2 fL Normal 81.0-99.0 [facility] Comment on above: Performed By: #### C BC #### [facility] [address] [place] [address] Dr. Lorenzo Mcpherson MONO # 1.2 103/ul Critically high 0.3-0.8 [facility] Comment on above: Performed By: #### C BC #### [facility] [address] [address] [address] Lorenzo Mcpherson Monocytes/100 WBC (Bld) 15.2 % Critically high 1.7-12.0 [facility] Comment on above: Performed By: #### C BC #### [facility] [address] [address] [address] Lorenzo Mcpherson NEUT # 3.5 103/ul Normal 1.4-6.5 [facility] Comment on above: Performed By: #### C BC #### [facility] [address] [address] [address] Lorenzo Mcpherson Neutrophils/100 WBC (Bld) 44.1 % Normal 43.0-75.0 [facility] Comment on above: Performed By: #### C BC #### [facility] [address] [place] [address] Dr. Lorenzo Mcpherson Platelet mean volume (Bld) [Entitic vol] 9.6 fL Normal 9.5-13.5 [facility] Comment on above: Performed By: #### C BC #### [facility] [address] [place] [address] Dr. Lorenzo Mcpherson PLT 258 103/ul Normal 150-450 [facility] Comment on above: Performed By: #### C BC #### [facility] [address] [place] [address] Dr. Lorenzo Mcpherson RBC 4.75 106/ul Normal 4.20-5.40 [facility] Comment on above: Performed By: #### C BC #### [facility] [address] [place] [address] Dr. Lorenzo Mcpherson WBC 8.0 103/ul Normal 4.0-11.0 [facility] Comment on above: Performed By: #### C BC #### [facility] [address] [place] [address] Dr. Lorenzo Mcpherson INFLUENZA A AND B AGon 11-01 INFLUANEGH SEE BELOW Normal [facility] Comment on above: Result Comment: Nega tive for Flu A protein angiten. Infection due to Flu A cannot be ruled out. Flu A angiten in the sample may be below the detection limit of the test. Performed By: #### I NFLUAB ####[facility] [id number] [address]Dr. Lorenzo Mcpherson INFLUBNEGH SEE BELOW Normal [facility] Comment on above: Result Comment: Nega tive for Flu B protein antigen. Infection due to Flu B cannot be ruled out. Flu B antigen in the sample may be below the detection limit of the test. Performed By: #### I NFLUAB ####[facility] [id number] [address]Dr. Lorenzo Mcpherson INFLUENZA A AG Negative Normal NEGATIVE SEE COMMENT [facility] Comment on above: Performed By: #### I NFLUAB ####[facility] [id number] [address]Dr. Lorenzo Mcpherson INFLUENZA B AG Negative Normal NEGATIVE SEE COMMENT [facility] Comment on above: Performed By: #### I NFLUAB ####[facility] [id number] [place], [place] [address]DrInez Mcpherson PROF CHEM 8 (BAS METB)on Anion gap [Moles/Vol] 12.5 mmol/L Normal [facility] [place] [facility] Comment on above: Performed By: #### B ENEDELIA, HSTROPN #### [facility] [address] [place] [address] Dr. Lorenzo Mcpherson Calcium [Mass/Vol] 9.0 mg/dL Normal 8.5-10.1 [facility] Comment on above: Performed By: #### B ENEDELIA HSTROPN #### [facility] [address] [place] [address] Dr. Lorenzo Mcpherson Chloride [Moles/Vol] 103 mmol/L Normal 98-107 [facility] Comment on above: Performed By: #### B ENEDELIA, HSTROPN #### [facility] [address] [address] [address] Lorenzo Mcpherson CO2 [Moles/Vol] 30.6 mmol/L Normal 21.0-32.0 [facility] Comment on above: Performed By: #### B MP, HSTROPN #### [facility] [address] [address] [address] Lorenzo Mcpherson Creatinine [Mass/Vol] 0.74 mg/dL Normal 0.55-1.02 [facility] Comment on above: Performed By: #### B MP, HSTROPN #### [facility] [address] [address] [address] Lorenzo Mcpherson EGFR-AF KYRGYZ >60 Normal >=60 [facility] Comment on above: Performed By: #### B MP, HSTROPN #### [facility] [address] [address] [address] Lorenzo Mcpherson EGFR-NON AF KYRGYZ >60 Normal >=60 [facility] Comment on above: Performed By: #### B MP, HSTROPN #### [facility] [address] [address] [address] Lorenzo Mcpherson Glucose [Mass/Vol] 159 mg/dL Critically high 74-106 [facility] Comment on above: Performed By: #### B MP, HSTROPN #### [facility] [address] [address] [address] Lorenzo Mcpherson Potassium [Moles/Vol] 4.1 mmol/L Normal 3.5-5.1 [facility] Comment on above: Performed By: #### B MP, HSTROPN #### [facility] [address] [address] [address] Lorenzo Mcpherson Sodium [Moles/Vol] 142 mmol/L Normal 136-145 [facility] Comment on above: Performed By: #### B MP, HSTROPN #### [facility] [address] [address] [address] Lorenzo Mcpherson Urea nitrogen [Mass/Vol] 13.0 mg/dL Normal 7.0-18.0 [facility] Comment on above: Performed By: #### B MP, HSTROPN #### [facility] [address] [address] [address] Lorenzo Mcpherson Urea nitrogen/Creatinine [Mass ratio] 17.6 mg/mg Normal [facility] Comment on above: Performed By: #### B ENEDELIA HSTROPN #### [facility] [address] [place] [address] Dr. Lorenzo Mcpherson TROPONIN, HIGH SENSITIVITYon 11-01-2022 HSTROP <4.0 Normal 4.0-51.3 [facility] Comment on above: Result Comment: CUT- OFF POINTS HAVE BEEN ESTABLISHED BASED ON THE FOURTH UNIVERSAL DEFINITIONS OF MYOCARDIAL INFARCTION. THE UPPER REFERENCE LIMIT (URL) OF TROPONIN, DEFINED THE 99TH PERCENTILE OF cTnI DISTRIBUTION IN A REFERENCE POPULATION, HAS BEEN CONFIRMED THE DECISION THRESHOLD FOR VT DIAGNOSIS. Performed By: #### B ENEDELIA HSTROPN #### [facility] [address] [place] [address] Dr. Lorenzo Mcpherson XR CHEST 1 Von 11-01-2022 XR CHEST 1 V EXAM: XR CHEST 1 V HISTORY: COUGH COMPARISON: 04/21/2022 TECHNIQUE: Chest X-ray AP, 1 view FINDINGS: Support devices: None. Lungs/pleura: No consolidation, effusion, or pneumothorax. Heart and mediastinum: Normal contours. Bones: No acute abnormality identified. Impression: No radiographic evidence of acute cardiopulmonary process. Electronically authenticated by: OMID ADAMS Date: 2022-11-01 14:47 Normal [facility] CBC AUTO DIFFon 04-21-2022 BASO # 0.1 103/ul Normal 0.0-0.1 [facility] Comment on above: Performed By: #### C BC #### [facility] [address] [place] [address] Dr. Lorenzo Mcpherson Basophils/100 WBC (Bld) 0.6 % Normal 0.2-2.0 [facility] Comment on above: Performed By: #### C BC #### [facility] [address] [place] [address] Dr. Lorenzo Mcpherson EO # 0.3 103/ul Normal 0.0-0.7 [facility] Comment on above: Performed By: #### C BC #### [facility] [address] [place] [address] Dr. Lorenzo Mcpherson Eosinophils/100 WBC (Bld) 3.0 % Normal 0.9-7.0 [facility] Comment on above: Performed By: #### C BC #### [facility] [address] [place] [address] Dr. Lorenzo Mcpherson Erythrocyte distribution width (RBC) [Ratio] 13.1 % Normal 11.0-15.0 [facility] Comment on above: Performed By: #### C BC #### [facility] [address] [place] [address] Dr. Lorenzo Mcpherson Hematocrit (Bld) [Volume fraction] 39.9 % Normal 36.0-48.0 [facility] Comment on above: Performed By: #### C BC #### [facility] [address] [place] [address] Dr. Lorenzo Mcpherson Hemoglobin (Bld) [Mass/Vol] 13.1 g/dL Normal 12.0-16.0 [facility] Comment on above: Performed By: #### C BC #### [facility] [address] [place] [address] Dr. Lorenzo Mcpherson IG # 0.06 10e3/ul Critically high 0.00-0.03 [facility] Comment on above: Performed By: #### C BC #### [facility] [address] [place] [address] Dr. Lorenzo Mcpherson IG % 0.7 % Critically high 0.0-0.5 [facility] Comment on above: Performed By: #### C BC #### [facility] [address] [place] [address] Dr. Lorenzo Mcpherson LYMPH # 2.7 103/ul Normal 1.2-3.8 [facility] Comment on above: Performed By: #### C BC #### [facility] [address] [place] [address] Dr. Lorenzo Mcpherson Lymphocytes/100 WBC (Bld) 32.2 % Normal 20.5-60.0 [facility] Comment on above: Performed By: #### C BC #### [facility] [address] [place] [address] Dr. Lorenzo Mcpherson MANUAL DIFF REQ NO Normal [facility] Comment on above: Performed By: #### C BC #### [facility] [address] [place] [address] Dr. Lorenzo Mcpherson MCH (RBC) [Entitic mass] 28.1 pg Normal 26.7-34.0 [facility] Comment on above: Performed By: #### C BC #### [facility] [address] [place] [address] Dr. Lorenzo Mcpherson MCHC (RBC) [Mass/Vol] 32.8 g/dL Normal 29.9-35.2 [facility] Comment on above: Performed By: #### C BC #### [facility] [address] [place] [address] Dr. Lorenzo Mcpherson MCV (RBC) [Entitic vol] 85.6 fL Normal 81.0-99.0 [facility] Comment on above: Performed By: #### C BC #### [facility] [address] [place] [address] Dr. Lorenzo Mcpherson MONO # 0.8 103/ul Normal 0.3-0.8 [facility] Comment on above: Performed By: #### C BC #### [facility] [address] [place] [address] Dr. Lorenzo Mcpherson Monocytes/100 WBC (Bld) 9.3 % Normal 1.7-12.0 [facility] Comment on above: Performed By: #### C BC #### [facility] [address] [place] [address] Dr. Lorenzo Mcpherson NEUT # 4.6 103/ul Normal 1.4-6.5 [facility] Comment on above: Performed By: #### C BC #### [facility] [address] [place] [address] Dr. Lorenzo Mcpherson Neutrophils/100 WBC (Bld) 54.2 % Normal 43.0-75.0 [facility] Comment on above: Performed By: #### C BC #### [facility] [address] [place] [address] Dr. Lorenzo Mcpherson Platelet mean volume (Bld) [Entitic vol] 9.4 fL Critically low 9.5-13.5 [facility] Comment on above: Performed By: #### C BC #### [facility] [address] [place] [address] Dr. Lorenzo Mcpherson PLT 268 103/ul Normal 150-450 [facility] Comment on above: Performed By: #### C BC #### [facility] [address] [place] [address] Dr. Lorenzo Mcpherson RBC 4.66 106/ul Normal 4.20-5.40 [facility] Comment on above: Performed By: #### C BC #### [facility] [address] [place] [address] Dr. Lorenzo Mcpherson WBC 8.5 103/ul Normal 4.0-11.0 [facility] Comment on above: Performed By: #### C BC #### [facility] [address] [place] [address] Dr. Lorenzo Mcpherson GLYCOHEMOGLOBIN A1Con 2021 ADA RECOMMENDATION SEE BELOW Normal [facility] Comment on above: Result Comment: ADA RECOMMENDED LIMIT 4.0 - 6.0 ADA THERAPEUTIC TARGET < 7.0 ACTION SUGGESTED > 7.0 Performed By: #### A 1C #### [facility] [address] [place] [address] Dr. Lorenzo Mcpherson Glucose [Mass/Vol] 143 mg/dL Normal [facility] Comment on above: Performed By: #### A 1C #### [facility] [address] [place] [address] Dr. Lorenzo Mcpherson HbA1c (Bld) [Mass fraction] 6.6 % Critically high 4.5-6.2 [facility] Comment on above: Performed By: #### A 1C #### [facility] [address] [place] [address] Dr. Lorenzo Mcpherson PROF 14(COMP METB)on 022 Albumin [Mass/Vol] 3.8 g/dL Normal 3.4-5.0 [facility] Comment on above: Performed By: #### C MP #### [facility] [address] [place] [address] Dr. Lorenzo Mcpherson Albumin/Globulin [Mass ratio] 1.1 {ratio} Normal [facility] Comment on above: Performed By: #### C MP #### [facility] [address] [place] [address] Dr. Lorenzo Mcpherson ALP [Catalytic activity/Vol] 87 U/L Normal 46-116 [facility] Comment on above: Performed By: #### C MP #### [facility] [address] [place] [address] Dr. Lorenzo Mcpherson ALT [Catalytic activity/Vol] 52 U/L Normal 14-59 [facility] Comment on above: Performed By: #### C MP #### [facility] [address] [place] [address] Dr. Lorenzo Mcpherson Anion gap [Moles/Vol] 10.2 mmol/L Normal [facility] [place] [facility] Comment on above: Performed By: #### C MP #### [facility] [address] [place] [address] Dr. Lorenzo Mcpherson AST [Catalytic activity/Vol] 36 U/L Normal 15-37 [facility] Comment on above: Performed By: #### C MP #### [facility] [address] [place] [address] Dr. Lorenzo Mcpherson Bilirubin [Mass/Vol] 0.6 mg/dL Normal 0.2-1.0 [facility] Comment on above: Performed By: #### C MP #### [facility] [address] [place] [address] Dr. Lorenzo Mcpherson Calcium [Mass/Vol] 8.7 mg/dL Normal 8.5-10.1 [facility] Comment on above: Performed By: #### C MP #### [facility] [address] [place] [address] Dr. Lorenzo Mcpherson Chloride [Moles/Vol] 102 mmol/L Normal 98-107 [facility] Comment on above: Performed By: #### C MP #### [facility] [address] [place] [address] Dr. Lorenzo Mcpherson CO2 [Moles/Vol] 30.7 mmol/L Normal 21.0-32.0 [facility] Comment on above: Performed By: #### C MP #### [facility] [address] [address] [address] Lorenzo Mcpherson Creatinine [Mass/Vol] 0.61 mg/dL Normal 0.55-1.02 [facility] Comment on above: Performed By: #### C MP #### [facility] [address] [address] [address] Lorenzo Mcpherson EGFR-AF KYRGYZ >60 Normal >=60 [facility] Comment on above: Performed By: #### C MP #### [facility] [address] [address] [address] Lorenzo Mcpherson EGFR-NON AF KYRGYZ >60 Normal >=60 [facility] Comment on above: Performed By: #### C MP #### [facility] [address] [place] [address] Dr. Lorenzo Mcpherson Globulin (S) [Mass/Vol] 3.5 g/dL Normal [facility] Comment on above: Performed By: #### C MP #### [facility] [address] [address] [address] Lorenzo Mcpherson Glucose [Mass/Vol] 108 mg/dL Critically high 74-106 [facility] Comment on above: Performed By: #### C MP #### [facility] [address] [place] [address] Dr. Lorenzo Mcpherson Potassium [Moles/Vol] 3.9 mmol/L Normal 3.5-5.1 [facility] Comment on above: Performed By: #### C MP #### [facility] [address] [place] [address] Dr. Lorenzo Mcpherson Protein [Mass/Vol] 7.3 g/dL Normal 6.4-8.2 [facility] Comment on above: Performed By: #### C MP #### [facility] [address] [place] [address] Dr. Lorenzo Mcpherson Sodium [Moles/Vol] 139 mmol/L Normal 136-145 [facility] Comment on above: Performed By: #### C MP #### [facility] [address] [place], [place] [address] Dr. Lorenzo Mcpherson Urea nitrogen [Mass/Vol] 12.0 mg/dL Normal 7.0-18.0 [facility] Comment on above: Performed By: #### C MP #### [facility] [address] [place], [place] [address] Dr. Lorenzo Mcpherson Urea nitrogen/Creatinine [Mass ratio] 19.7 mg/mg Normal [facility] Comment on above: Performed By: #### C MP #### [facility] [address] [place], [place] [address] Dr. Lorenzo Mcpherson XR KNEE ANA CRISTINA AP STNDon 2021 XR KNEE ANA CRISTINA AP STND EXAMINATION: XR KNEE ANA CRISTINA AP STND HISTORY: Pain of bilateral knee joints COMPARISON: 02/24/2022 FINDINGS: RIGHT FINDINGS: BONES: No acute fracture or dislocation. Minimal degenerative changes with marginal osteophyte formation. No significant narrowing SOFT TISSUES: Negative. No visible soft tissue swelling. OTHER: Limited standing frontal projection LEFT FINDINGS: BONES: Total knee arthroplasty in anatomic alignment. No acute fracture, dislocation or mechanical failure SOFT TISSUES: Negative. No visible soft tissue swelling. OTHER: Limited standing frontal projection IMPRESSION: RIGHT CONCLUSION: Mild osteoarthritis LEFT CONCLUSION: Knee arthroplasty Electronically authenticated by: MARIELA STODDARD Date: 2022-03-06 18:11 Normal [facility] XR KNEE ANA CRISTINA 4V or >on 2021 XR KNEE ANA CRISTINA 4V or > BILATERAL KNEES, 8 VIEWS COMPARISON: None. HISTORY: Pain bilaterally. FINDINGS: On the left, there is total knee arthroplasty. There is anatomic alignment of the femoral and tibial components. There is a moderate knee joint effusion seen on lateral view. The osseous, articular, and surrounding soft tissue structures are otherwise unremarkable On the right, note is made of moderate to marked tricompartmental osteoarthritis. Joint space narrowing and spur formation is more evident at the medial than lateral knee joint compartment, there is also significant involvement of the patellofemoral joint. There is degenerative lateral subluxation of the tibia in relation to the femur. There is only trace knee joint effusion present on lateral view. IMPRESSION: 1. Moderate to marked tricompartmental osteoarthritis of the right knee as detailed above. 2. Total left knee arthroplasty with anatomic alignment and no obvious complication of hardware placement. 3. Moderate left knee joint effusion with only a trace right knee joint effusion. Electronically authenticated by: MARIELA DELCID Date: 2022-02-24 18:01 Normal [facility] Vital Signs Date Time Vital Sign Value Performing Clinician Farhan olsen 03-12-2023 13:22-0400 Blood Pressure Location Tyler FRANCIS[facility] [place] 03-12-2023 13:22-0400 Diastolic blood pressure 78 mm[Hg] Tyler NILL [facility] [place] 03-12-2023 13:22-0400 Heart rate 72 /min Tyler NILL [facility] 03-12-2023 13:22-0400 Respiratory rate 16 /min Tyler NILL [facility] 03-12-2023 13:22-0400 Systolic blood pressure 120 mm[Hg] Tyler NILL [facility] Encounters Encounter Date Encounter Type Care Provider Facility Start: 10-09-2024 End: 10-09-2024 ambulatory [facility] Start: 05-17-2023 End: 05-18-2023 ambulatory ANDRE Monk [facility] Start: 04-27-2023 End: 04-28-2023 ambulatory Tyler [facility] Start: 04-14-2023 End: 04-15-2023 ambulatory Tyler R NILL Facility:CD:[id number] Start: 03-12-2023 End: 03-13-2023 ambulatory [facility] R [facility]ILL [facility] Start: 03-12-2023 End: 03-12-2023 Patient encounter procedure Tyler SINGHL [facility] Start: 11-01-2022 End: 11-01-[address] DORI BUNCH . Facility:[facility] Start: 07-19-2022 End: 08-28-[address] DORI BUNCH . Facility:[facility] Start: 05-25-2022 End: 07-18-[address] DORI BUNCH . Facility:[facility] Start: 04-23-2022 Encounter for preprocedural cardiovascular examination DR DORI BUNCH . [facility] Start: 04-23-2022 Encounter for preprocedural laboratory examination DR DORI BUNCH . [facility] Start: 04-21-2022 End: 04-22-[address] DORI BUNCH . Facility:[facility] Start: 04-21-2022 End: 04-22-2022 Encounter for preprocedural cardiovascular examination DR DORI BUNCH . Facility: Start: 03-15-[address] DORI BUNCH . Facili ty:[facility] Start: 03-06-2022 End: 03-07-[address] DORI BUNCH . Facility:[facility] Start: 02-24-2022 End: 02-25-[address] DORI BUNCH . Facility:[facility] Procedures Date Procedure Procedure Detail Performing Clinician Start: 02-26-2021 Colonoscopy Tyler NI LL Comment on above: with polypectomy @ T Start: 08-07-2013 left knee arthroscop y with partial medial meniscectomy, chondroplasty lateral tibia, chondroplasty patellofemoral joint Tyler NILL Arthroscopy of knee Tyler NILL Comment on above: RIGHT KNEE Arthrotomy Tyler NILL Comment on above: RIGHT KNEE Colonoscopy Tyler NILL Endometrial ablation Tyler NILL Excision of cyst of ovary Mi chael NILL Exploratory laparotomy Apolinar dhruv NILL Comment on above: CYST Ligation of fallopian tube M ichnevaeh NILL Repair of joint of l eft knee Tyler NILL Repair of joint of r ight knee Tyler NILL Vaginal hysterectomy Tyler NILL Immunizations Immunization Date Immunization Notes Care Provider Fa [facility] 07-04-2021 SARS-CoV-2 (COVID-19 ) mRNA BNT-162b2 vax Tyler NILL [facility] [place] Comment on above: Result Comment: 2022: [id number] 2020 SARS-CoV-2 (COVID-19 ) mRNA BNT-162b2 vax Ytler NILL [facility] [place] 10-10-2020 SARS-CoV-2 (COVID-19 ) mRNA BNT-162b2 vax Tyler NILL [facility] [place] Payers Date Payer Category Payer Unknown [id number] 2.16.84 [id number] 1970 Unknown [id number] 2.16.84 [id number] 1970 Unknown [id number] 2.16.84 [id number] 1968 Unknown [id number] 2.16.84 [id number] 1968 Unknown [id number] 2.16.84 [id number] 1968 Unknown [id number] 2.16.84 [id number] 1968 Unknown [id number] 2.16.84 [id number] 1968 Unknown [id number] 2.16.8 [id number] 1968 Unknown [id number] 2.16.8 [id number] 1968 Unknown [id number] 2.16.8 [id number] 1968 Unknown [id number] 2.16.8 [id number] 1961 Self-pay [id number] 1961 Unknown [id number] Social History Date Type Detail Facility Start: 03-12-2023 Tobacco smoking status Never s moked tobacco (finding) [facility] [place] Tobacco smoking status Never [facility] [place] Sex Assigned At Female [facility] Functional Status Date Assessment Result Facility 03-12-2023 Functional Status N/A [facility] Progress note 10-09-2024 Note Date & Type Note Facility 10-09-2024 Note [facility] Note Chief Complaint: New Patient. Patient here for Abnormal stress test. HPI: Patel Cunha is a 53 y.o. female With obesity, hypertension, diabetes mellitus, and a strong family history of premature coronary artery disease here for complaints of exertional shortness of breath and chest pressure. This has been going on and off for the past 6 months. She had a change in job and this new job requires her to walk frequently. She has began noticing exertional chest discomfort as well as shortness of breath. Pertinently, she also has some of the symptoms when she is driving back home. She feels that it may be related to underlying anxiety. No orthopnea, no paroxysmal tunnel dyspnea, no lower extremity edema. Social history: She does not smoke but is exposed to secondhand smoke, she does not drink. She does not use illicit drugs. She is in retail sales. Family history: Her father had a stroke in his 50s and coronary artery disease and in his 70s. Her 50-year-old brother recently had a coronary stent. Cardiology ROS: Past Medical History She has a past medical history of Diabetes mellitus ([facility]), GERD (gastroesophageal reflux disease), Hypertension, and Sleep apnea. Surgical History She has a past surgical history that includes Replacement total knee oncologic; Tubal ligation; and Hysterectomy. Social History She reports that she has never smoked. She has never used smokeless tobacco. She reports that she does not currently use alcohol. No history on file for drug use. Family History Family History Problem Relation Name Age of Onset Stroke Father Coronary artery disease Father Diabetes Father Other (defibrillator) Father Hyperlipidemia Brother Coronary artery disease Brother Allergies Nsaids (non-steroidal anti-inflammatory drug) and Sulfa (sulfonamide antibiotics) Medications No current outpatient medications on file. Last Recorded Vitals BP 136/84 (BP Location: Left arm, Patient Position: Sitting) Pulse 84 Ht 1.6 m (5' 3 ) Wt 98.9 kg (218 lb) SpO2 99% BMI 38.62 kg/m??? Physical Examination: GENERAL: alert and oriented x3, well developed, in no acute distress. HEAD: atraumatic, normocephalic. EYES: AILEEN, EOMI. NECK: trachea midline, no JVD present, no carotid bruits present. CARDIAC: S1, S2 present. RRR. No murmur, rubs, or gallops. RESPIRATORY: CTAB, no increased effort of breathing, no rales, rhonchi, or wheezing. ABDOMEN: soft, nontender, nondistended. EXTREMITIES: no lower extremity edema, peripheral pulses are 2+ bilaterally. No rash/skin discoloration present. NEURO: strength/sensation equal and symmetric in bilateral upper and lower extremities. PSYCH: appropriate mood, affect, and judgement. INVESTIGATIONS: Treadmill Cardiolite stress test; Positive treadmill exercise test for exercise-induced ST segment depressions Sarmiento treadmill score of +2.5 associated with intermediate risk for long-term cardiac events Myocardial perfusion imaging will be reported separately Myocardial perfusion is normal with soft tissue attenuation Global left ventricular systolic function is normal No evidence of transient ischemic dilatation Assessment: Exertional shortness of breath and chest discomfort concerning for unstable angina Hypertension Dyslipidemia Diabetes mellitus type 2 Family history of premature coronary artery disease Abnormal EKG portion of stress test Plan: Routine labs A complete echocardiogram Given her risk factor profile, and her symptoms, the abnormal EKG portion should be taken more seriously than usual despite the normal nuclear portion; I recommended proceeding with cardiac catheterization. We will schedule her for right heart catheterization and coronary angiography via a right internal jugular and left radial approach. Should she have no significant coronary stenoses, she likely has an element of heart failure with preserved ejection fraction which can be confirmed by echo as well as invasive hemodynamics. If no plausible cardiovascular explanations can be found, she may need investigations for pulmonary etiologies. Follow-up after testing Diana Forrest MD, MPH, FACC, [facility], [facility] Interventional Cardiology Pager Email: [email or web address] Clinical Note 03-12-2023 Note Date & Type Note Facility 03-12-2023 Note Chief Complaint consultation for surveillance colonoscopy HPI Staff 52 year old female presents on consultation from Laura Banks for surveillance colonoscopy. History of tubulovillous adenoma with high grade dysplasia 11/2020. Last colonoscopy completed 02/2021 with tubular adenoma x 2. Recent episode of abdominal pain that resolved after constipation resolved. Denies rectal pain, rectal bleeding or change in bowel habits. Denies nausea or vomiting. No unexplained weight loss. Grandfather and uncle with history of colon cancer. Cousin diagnosed age early 50's, grandfather age unknown. History of Present Illness 52 yo female with h/o htn, ROSENDO, anxiety/depression, presents for surveillance colonoscopy; h/o multiple polyps 2 years ago, with tubulovillous adenoma in sigmoid with focus of high grade dysplasia; f/u colonoscopy 3 months later with 2 tubular adenomas; denies change in bms or blood in stools; no abd complaints; abd operations significant for tubal ligation, ovarian cystectomy and vaginal hysterectomy; no asa or NSAID use, no SBE prophylaxis; no fmhx of GI malignancy or IBD; no tobacco use. Review of Systems PHQ Score Initial Depression Screen Score: 0 ROS - Provider Constitutional: no fever, no sweats, no weight loss. Eyes: no glasses, no blurred vision, no visual loss. ENMT: no dentures, no hoarseness, no swallowing difficulties, no hearing loss, no ear infection(s), no nose bleeds. Cardiovascular: normal blood pressure, no chest pain, regular heartbeat, no heart murmur. Respiratory: no shortness of breath, no cough, no asthma, no wheezing. Gastrointestinal: no nausea, no vomiting, no diarrhea, no constipation, no blood in stool, no change in bowel habits, no abdominal pain, no hepatitis. Genitourinary: no kidney stones, no urine infection, no dysuria. Musculoskeletal: no pain, no weakness. Skin: no changing moles, no rash, no skin lumps. Neurologic: no seizures, no epilepsy, no headache. Psychiatric: no emotional or psychiatric problem. Heme/Lymph: no bleeding problems, no anemia, no blood clots, no transfusions. Allergy/Immunologic: no swollen lymph nodes/glands, no IV drug abuse. Other: Additional ROS info: Except as noted in the above Review of Systems and in the History of Present Illness, all other systems have been reviewed and are negative or noncontributory. Physical Exam Vitals & Measurements HR: 72(Peripheral) RR: 16 BP: 120/78 HT: 63 in HT: 160 cm WT: 101.4 kg WT: 223.08 lb BMI: 39.61 HEENT: normal conjunctiva, sclera clear, no scleral icterus, EOM intact, PERRLA, oral mucosa moist without lesions. Neck: trachea midline, no mass, symmetric, no thyromegaly or nodules, no adenopathy Respiratory: lungs CTA, respirations non labored. Cardiovascular: regular rate and rhythm, no murmur, no pedal edema or varicosities. Gastrointestinal: obese, soft, non distended, no tenderness, no masses, no palpable hernias, diastasis recti no, no hepatosplenomegaly; normal bs Lymphatic: no cervical adenopathy, no supraclavicular adenopathy. Musculoskeletal: normal gait, digits and nails without infection, nodes, cyanosis, clubbing. Skin: no rashes, no lesions, no ulcers, no subcutaneous nodules, induration. Psychiatric/Neuro: oriented to time, place, person, judgement normal, affect appropriate for age, insight intact, no focal deficits. Tests: review of old records completed, Discussed surgical options, risks, and possible complications with patient. Assessment/Plan 1. Personal history of colonic polyps (Z86.010: Personal history of colonic polyps) plan surveillance colonoscopy under anesthesia, informed consent obtained. Orders: hyoscyamine, 0.125 mg = 1 tab(s), Oral, QID, PRN for spasm, # 12 tab(s), Refills(s) 0, Pharmacy: [facility]/pharmacy #[id number], 160, cm, 02/06/21 9:57:00 EDT, Height/Length Dosing, 101.7, kg, 02/06/21 9:57:00 EDT, Weight Dosing Follow-up No qualifying data available Problem List/Past Medical History Ongoing Anxiety and depression BMI 39.0-39.9,adult Eczema GERD (gastroesophageal reflux disease) High grade dysplasia in colonic adenoma History of ovarian cyst HTN - Hypertension Knee DJD Morbid obesity RSOENDO (obstructive sleep apnea) Personal history of colonic polyps Right lower quadrant pain Screening for malignant neoplasm of colon Tear of medial meniscus of knee Tubulovillous adenoma of colon Historical No qualifying data Procedure/Surgical History Colonoscopy (02/26/2021), left knee arthroscopy with partial medial meniscectomy, chondroplasty lateral tibia, chondroplasty patellofemoral joint (08/07/2013), Arthroplasty of left knee, Arthroplasty of right knee, Arthroscopy of knee, Arthrotomy, Colonoscopy, Endometrial ablation, Exploratory laparotomy, Ovarian cystectomy, Tubal ligation, VH - Vaginal hysterectomy. Medications lisinopril 20 mg Tab, 20 mg= 1 tab(s), Oral, Daily Zoloft 50 mg Tab, 50 mg= 1 tab(s), Oral, Daily Allergies NSAIDs (Hives) sulfam (more content not included)... [facility] Comment on above: Result Comment: Elec tronically Signed By: RHONDA DE LUNA, Tyler Vincent\Date and Time Signed: 03/12/23 13:49 EDT Clinical Note 04-21-2022 Note Date & Type Note Facility 04-21-2022 Note EXAMINATION: XR CHES T 2 V HISTORY: Pre-surgery evaluation COMPARISON: No relevant comparison available. FINDINGS: LUNGS: No significant pulmonary parenchymal abnormalities. VASCULATURE: No increased pulmonary vasculature. PLEURA: No pneumothorax, effusion, or pleural thickening. CARDIAC: No cardiomegaly or cardiac silhouette abnormality. MEDIASTINUM: No visible mass or adenopathy. BONES: No fracture or visible bone lesion. OTHER: Negative. IMPRESSION: 1. No acute cardiopulmonary process or significant chronic interstitial changes. Electronically authenticated by: KULWINDER NICKERSON Date: 2022-04-21 12:53 [facility] Evaluation + Plan note Note Date & Type Note Facility Evaluation + Plan note No data available for this section [facility] Discharge instructions Note Date & Type Note Facility Hospital Discharge instructions No data available for this section [facility] [place] Progress note Note Date & Type Note Facility Progress note No data available for this section [facility] [place] Summary Purpose Family History No Family History Records FoundNo Family History Records FoundNo Family History Records FoundNo Family History Records Found Advance Directives No Advanced Directives Records FoundNo Advanced Directives Records FoundNo Advanced Directives Records FoundNo Advanced Directives Records Found Additional Source Comments INFORMATION SOURCE (unrecogn ized section and content) DATE CREATED AUTHOR 11/02/2022 [facility] DATE CREATED AUTHOR AUTHOR'S ORGANIZ ATION 04/29/2023 Dhruv Richards [facility] DATE CREATED AUTHOR AUTHOR'S ORGANIZ ATION 05/23/2023 [facility] DATE CREATED AUTHOR AUTHOR'S ORGANIZ ATION 10/15/2024 [facility] Patient Care team informatio n (unrecognized section and content) Personnel Name: Dori Bunch MD Address: Address: [address] [place], [place] [address] FOR RECORDS PERTAINING TO PATIENTS WHO ARE OR HAVE BEEN ENROLLED IN A CHEMICAL DEPENDENCY/SUBSTANCEABUSE PROGRAM, SOME INFORMATION MAY BE OMITTED. This clinical summary was aggregated from multiple sources. Caution should be exercised in using it in the provision of clinical care. This summary normalizes information from multiple sources, and as a consequence, information in this document may materially change the coding, format and clinical context of patient data. In addition, data may be omitted in some cases. CLINICAL DECISIONS SHOULD BE BASED ON THE PRIMARY CLINICAL RECORDS. [facility]. provides no warranty or guarantee of the accuracy or completeness of information in this document.
[2024-10-24 09:58] LABS: Basophils Absolute Auto 0.1 10^3/uL (0.0-0.1); Basophils Percent Auto 0.7 % (0.2-2.0); Eosinophils Absolute Auto 0.2 10^3/uL (0.0-0.7); Eosinophils Percent Auto 3.1 % (0.9-7.0); Hematocrit 40.5 % (36.0-48.0); Hemoglobin 13.6 g/dL (12.0-16.0); Immature Granulocytes Abs Auto 0.03 10^3/uL (0.00-0.03); Immature Granulocytes Pct Auto 0.4 % (0.0-0.5); Lymphocytes Absolute Auto 2.5 10^3/uL (1.2-3.8); Lymphocytes Percent Auto 32.7 % (20.5-60.0); Mean Corpuscular HGB Conc 33.6 g/dL (29.9-35.2); Mean Corpuscular Hemoglobin 28.8 pg (26.7-34.0); Mean Corpuscular Volume 85.8 fL (81.0-99.0); Mean Platelet Volume 9.9 fL (9.5-13.5); Monocytes Absolute Auto 0.8 10^3/uL (0.3-0.8); Neutrophils Percent Auto 53.1 % (43.0-75.0); Platelet Count 245 10^3/uL (150-450); Red Blood Count 4.72 10^6/uL (4.20-5.40); Red Cell Distribution Width 12.8 % (11.0-15.0); White Blood Count 7.5 10^3/uL (4.0-11.0)
[2024-10-24 10:23] LABS: Anion Gap 9.3; BUN Creatinine Ratio 16.2; Calcium 8.8 mg/dL (8.5-10.1); Carbon Dioxide 30.8 mmol/L (21.0-32.0); Chloride 102 mmol/L (98-107); Estimated GFR (African America >60 (>=60 mL/min/1.73m^2); Estimated GFR (Non-African Ame >60 (>=60 mL/min/1.73m^2); Glucose 198 mg/dL (74-106); Potassium 4.1 mmol/L (3.5-5.1); Sodium 138 mmol/L (136-145)
== END 2024-10-24 09:01 | disposition home or self-care (01) ==
PROVIDERS: PCP Family Medicine; Visit Provider Internal Medicine Interventional Cardiology
DX: Z01.818 Encounter for other preprocedural examination (principal); R06.02 Shortness of breath
CPT/HCPCS: 36415; 80048; 85025; 93306

== ENCOUNTER 2024-11-21 08:57 | Outpatient (OUT) | payer BC, SELFPAY ==
--- NOTE | 2024-11-21 10:02 | RT_ITS ---
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 Findings were considered accurate and reproducible. No bronchodilator was administered due to normal spirometric values. Spirometry: -FEV1/FVC: Normal @ 87% -FEV1: Normal @ 86% -FVC: Normal @ 78% Lung volumes by plethysmography: -RV: Normal @ 98% -TLC: Normal @ 90% Diffusion capacity: -DLCO: Normal @ 91% when corrected for Hb 13.6g/dL Impressions: -Spirometry suggests mild restriction, but TLC and DLCO are normal, indicating an obesity pattern (stated BMI is 38.3). Clinical correlation are required. Electronically Signed On 11-21-2024 17:34:56 EDT by Jose Daniel Clarke
== END 2024-11-21 08:58 | disposition home or self-care (01) ==
LOC: CARD 08:59
PROVIDERS: PCP Family Medicine; Visit Provider Internal Medicine Interventional Cardiology
DX: R06.09 Other forms of dyspnea (principal)
CPT/HCPCS: 94010; 94726; 94729